=== PATIENT | male | born 1985 | race Caucasian/White ===

== ENCOUNTER → 2016-09-29 | Outpatient (CLI) | payer MEDICARE, MEDICAID ==
[~2016-09-29] MED LIST: AMLOPIDINE PO; CARVEDILOL PO; CELLCEPT 5500 MG/TAB PO; COREG 25MG25 MG/TAB PO; COREG CR40 MG PO; FISH OIL1 IU PO; GABAPENTIN100 M1 PO; KAYEXALATE15 GM/60 M PO; LASIX 40MG TABL40 MG PO; LISINOPRIL20 MG PO; NORCO 325 MG-51 TAB PO; NORVASC 10MG10 MG PO; NORVASC 5MG5 MG/TAB PO; PHOSLO667 M1 PO; PRAVACHOL 20MG20 MG PO; PREDNISONE 5MG5 MG PO; PROGRAF 1MG1 MG PO; RENVELA800 MG PO; TENORMIN 5050 MG/TAB PO; TYLENOL 500MG500 MG PO; VALCYTE450 MG PO; VALTREX 50500 MG/TAB PO; ZOVIRAX400 MG PO; phoslo PO; sensipar PO
[2016-09-29 10:02] LABS: CALCIUM 9.7 mg/dL (8.4-10.2); POTASSIUM 4.9 mmol/L (3.4-5.0)
[2016-09-29 10:11] LABS: CREATININE, serum 11.86 mg/dL (0.66-1.25)
== END ==
LOC: COL.LAB 07:43
PROVIDERS: Internal Medicine
DX: E87.5 Hyperkalemia (principal)

== ENCOUNTER 2016-10-01 11:13 | Day surgery (SDC) | payer MEDICARE, MEDICAID ==
[~2016-10-01] VITALS: Ht 162.6 cm; Wt 52.6 kg
[~2016-10-01 11:13] MED LIST changes: -COREG 25MG25 MG/TAB PO; -KAYEXALATE15 GM/60 M PO; -LASIX 40MG TABL40 MG PO; -RENVELA800 MG PO; -TYLENOL 500MG500 MG PO
[2016-10-01 11:26] VITALS: BP 127/84; PULSE 57; TEMP 98.2
[2016-10-01] MEDS ORDERED: RENVELA800 MG PO (11:26)
[2016-10-01 13:00] VITALS: BP 153/93; PULSE 58; TEMP 98.7
== END 2016-10-01 12:10 | disposition home or self-care (01) ==
LOC: EUO 11:13
DX: T82.41XA Breakdown (mechanical) of vascular dialysis catheter, initial encounter (principal); N18.6 End stage renal disease
CPT/HCPCS: C1751; C1769; J1644

== ENCOUNTER 2016-10-09 12:59 | Outpatient (CLI) | payer MEDICARE, MEDICAID ==
[~2016-10-09] VITALS: Ht 162.7 cm; Wt 49.5 kg
[2016-10-09] VITALS (7 sets, daily range): BP systolic 147–187; BP diastolic 85–109; PULSE 67–90; TEMP 97.9
[~2016-10-09 12:59] MED LIST changes: +RENVELA800 MG PO
== END 2016-10-09 20:09 | disposition home or self-care (01) ==
LOC: EUO 12:59
DX: N18.6 End stage renal disease (principal); Z99.2 Dependence on renal dialysis
CPT/HCPCS: C1751; C1769; J1644; J3010; J7030; J7120; Q9967

== ENCOUNTER 2016-12-11 18:39 | Emergency (ER) | payer MEDICARE, MEDICAID ==
[~2016-12-11] VITALS: Ht 162.6 cm; Wt 49.0 kg
[2016-12-11 19:42] VITALS: TEMP 98.3
[2016-12-11] MEDS ORDERED: LASIX 40MG TABL40 MG PO (19:44)
[2016-12-11] MEDS ORDERED: COREG 25MG25 MG/TAB PO (19:57)
[2016-12-11] MEDS ORDERED: NORVASC 5MG5 MG/TAB PO (19:57)
[2016-12-11 20:27] VITALS: BP 181/132; PULSE 61
== END 2016-12-11 20:30 | disposition home or self-care (01) ==
LOC: COL.ER 18:39
DX: R60.9 Edema, unspecified (principal); I12.0 Hypertensive chronic kidney disease with stage 5 chronic kidney disease or end stage renal disease; N18.6 End stage renal disease; K21.9 Gastro-esophageal reflux disease without esophagitis; Z99.2 Dependence on renal dialysis; Z87.891 Personal history of nicotine dependence; Z94.0 Kidney transplant status; Z98.890 Other specified postprocedural states

== ENCOUNTER 2016-12-29 22:36 | Emergency (ER) | payer MEDICARE, MEDICAID ==
[~2016-12-29] VITALS: Ht 162.6 cm; Wt 50.0 kg
[~2016-12-29 22:36] MED LIST changes: +COREG 25MG25 MG/TAB PO; +LASIX 40MG TABL40 MG PO
[2016-12-29 22:38] VITALS: TEMP 98.6
[2016-12-30 00:55] VITALS: BP 124/78; PULSE 90
== END 2016-12-30 00:35 | disposition home or self-care (01) ==
LOC: COL.ER 22:36
DX: T82.898A Other specified complication of vascular prosthetic devices, implants and grafts, initial encounter (principal); N18.6 End stage renal disease; Z99.2 Dependence on renal dialysis

== ENCOUNTER 2017-01-01 11:38 | Inpatient (IN) | payer MEDICARE, MEDICAID ==
[2017-01-01] VITALS (318 sets, daily range): BP systolic 135–152; BP diastolic 92–99; PULSE 51–60; TEMP 97.5–98.3; O2SAT 61–100
[~2017-01-01] VITALS: Ht 162.6 cm; Wt 51.1 kg
[2017-01-01] MEDS ORDERED: TYLENOL 500MG500 MG PO (11:58)
[2017-01-01 12:55] LABS: BASO % 0.6 % (0.0-2.0); EOS # 0.2 (0.0-0.7); EOS % 3.3 % (0-4.0); GRAN % 57.6 % (42.2-75.2); LYMPH # 1.3 (1.2-3.4); LYMPH % 25.1 % (20.0-51.0); MEAN CELL VOLUME 105 fl (80.0-100.0); MEAN CORPUSCULAR HGB CONC 33 g/dl (33.0-37.0); MEAN PLATELET VOLUME 10.3 fl (7.4-10.4); MONO # 0.7 (0.1-0.6); MONO % 13.2 % (1.7-9.3); PLATELET COUNT 153 K/mm3 (130-400); RED BLOOD COUNT 3.27 M/mm3 (4.20-5.60); REDCELL DISTRIBUTION WIDTH-CV 16.2 % (11.5-14.5); WHITE BLOOD COUNT 5.1 K/mm3 (4.8-10.8)
[2017-01-01 13:01] LABS: HEMATOCRIT 34.3 % (42.0-52.0); HEMOGLOBIN 11.4 g/dl (13.5-18.0); MEAN CORPUSCULAR HEMOGLOBIN 35 pg (27.0-31.0)
[2017-01-01 13:09] LABS: ADJUSTED CALCIUM 8.5 mg/dL (8.4-10.2); ALBUMIN 4.1 gm/dL (3.5-5.0); BILIRUBIN,TOTAL 0.6 mg/dL (0.0-1.0); C-REACTIVE PROTEIN 0.6 mg/dL (0.0-0.9); CALCIUM 8.6 mg/dL (8.4-10.2); TOTAL PROTEIN 6.9 gm/dL (6.4-8.2)
[2017-01-01 13:31] LABS: CREATININE, serum 15.32 mg/dL (0.66-1.25)
[2017-01-01 13:32] LABS: ERYTHROCYTE SEDIMENTATION RATE 6 mm/hr (0-15); POTASSIUM 8.3 mmol/L (3.4-5.0)
[2017-01-02 00:10] VITALS: BP 135/81; PULSE 59; TEMP 97.9
[2017-01-02 03:50] VITALS: BP 120/76; PULSE 57; TEMP 98.2
[2017-01-02 07:26] LABS: MEAN CELL VOLUME 104 fl (80.0-100.0); MEAN CORPUSCULAR HGB CONC 33 g/dl (33.0-37.0); MEAN PLATELET VOLUME 10.4 fl (7.4-10.4); PLATELET COUNT 158 K/mm3 (130-400); RED BLOOD COUNT 3.33 M/mm3 (4.20-5.60); REDCELL DISTRIBUTION WIDTH-CV 16.1 % (11.5-14.5); WHITE BLOOD COUNT 5.8 K/mm3 (4.8-10.8)
[2017-01-02 07:28] LABS: HEMATOCRIT 34.7 % (42.0-52.0); HEMOGLOBIN 11.4 g/dl (13.5-18.0); MEAN CORPUSCULAR HEMOGLOBIN 34 pg (27.0-31.0)
[2017-01-02 07:37] VITALS: BP 153/89; PULSE 58; TEMP 98.9
[2017-01-02 07:48] LABS: CALCIUM 9.3 mg/dL (8.4-10.2); PHOSPHOROUS 6.6 mg/dL (2.5-4.5)
[2017-01-02 08:05] LABS: CREATININE, serum 9.51 mg/dL (0.66-1.25); POTASSIUM 6.4 mmol/L (3.4-5.0)
[2017-01-02 11:24] VITALS: BP 146/107; PULSE 64; TEMP 99.1
[2017-01-02] MEDS ORDERED: KAYEXALATE15 GM/60 M PO (12:05)
[2017-01-02 16:24] VITALS: BP 159/113; PULSE 70
== END 2017-01-02 16:59 | disposition home or self-care (01) | DRG 640 ==
LOC: COL.ER 11:38 → ICU 14:29 → MEDICAL 16:56 → ICU 16:56 → MEDICAL 20:21
PROVIDERS: Emergency Medicine; Internal Medicine Nephrology
PROC: 5A1D60Z (ICD-10-PCS; principal; 2017-01-01)
DX: E87.5 Hyperkalemia (principal); N18.6 End stage renal disease; I12.0 Hypertensive chronic kidney disease with stage 5 chronic kidney disease or end stage renal disease; D63.1 Anemia in chronic kidney disease; E16.0 Drug-induced hypoglycemia without coma; T38.3X5A Adverse effect of insulin and oral hypoglycemic [antidiabetic] drugs, initial encounter; Z99.2 Dependence on renal dialysis; Z87.891 Personal history of nicotine dependence
CPT/HCPCS: J1815

== ENCOUNTER 2017-05-27 11:27 | Outpatient (RCR) | payer MEDICARE, MEDICAID ==
[~2017-05-27 11:27] MED LIST changes: +KAYEXALATE15 GM/60 M PO; +TYLENOL 500MG500 MG PO
[2017-05-27 12:43] VITALS: BP 232/141; PULSE 97
[2017-05-27 13:02] VITALS: BP 222/146; PULSE 98
== END 2017-05-27 13:10 | disposition home or self-care (01) ==
LOC: EUO 11:27
DX: D64.9 Anemia, unspecified (principal); F17.290 Nicotine dependence, other tobacco product, uncomplicated; Z99.2 Dependence on renal dialysis; Z90.5 Acquired absence of kidney

== ENCOUNTER 2017-05-28 19:26 | Emergency (ER) | payer MEDICARE, MEDICAID ==
[~2017-05-28] VITALS: Ht 162.6 cm; Wt 50.0 kg
[2017-05-28 19:27] VITALS: TEMP 100.3
[2017-05-28 20:04] LABS: BASO % 0.5 % (0.0-2.0); EOS # 0.2 (0.0-0.7); EOS % 2.5 % (0-4.0); GRAN # 6.4 (1.4-6.5); GRAN % 72.6 % (42.2-75.2); HEMATOCRIT 22.2 % (42.0-52.0); HEMOGLOBIN 7.2 g/dl (13.5-18.0); LYMPH # 1.5 (1.2-3.4); LYMPH % 17.4 % (20.0-51.0); MEAN CELL VOLUME 99 fl (80.0-100.0); MEAN CORPUSCULAR HEMOGLOBIN 32 pg (27.0-31.0); MEAN CORPUSCULAR HGB CONC 32 g/dl (33.0-37.0); MEAN PLATELET VOLUME 9.9 fl (7.4-10.4); MONO # 0.6 (0.1-0.6); MONO % 6.7 % (1.7-9.3); PLATELET COUNT 270 K/mm3 (130-400); RED BLOOD COUNT 2.25 M/mm3 (4.20-5.60); WHITE BLOOD COUNT 8.9 K/mm3 (4.8-10.8)
[2017-05-28 20:09] LABS: ADJUSTED CALCIUM 9.3 mg/dL (8.4-10.2); ALBUMIN 4.2 gm/dL (3.5-5.0); BILIRUBIN,TOTAL 0.9 mg/dL (0.0-1.0); CALCIUM 9.5 mg/dL (8.4-10.2); POTASSIUM 3.7 mmol/L (3.4-5.0)
[2017-05-28 20:18] LABS: CREATININE, serum 6.32 mg/dL (0.66-1.25)
[2017-05-28 21:49] LABS: CALCIUM 9.4 mg/dL (8.4-10.2); POTASSIUM 4.1 mmol/L (3.4-5.0)
[2017-05-28 21:53] LABS: CREATININE, serum 7.55 mg/dL (0.66-1.25)
[2017-05-28 22:32] VITALS: BP 230/110; PULSE 109
== END 2017-05-28 22:30 | disposition short-term general hospital (02) ==
LOC: COL.ER 19:26
PROVIDERS: Family Medicine
DX: N18.5 Chronic kidney disease, stage 5 (principal); E87.70 Fluid overload, unspecified; J18.9 Pneumonia, unspecified organism; R79.89 Other specified abnormal findings of blood chemistry
CPT/HCPCS: J0696; J2060; J7050

== ENCOUNTER 2017-07-31 12:31 | Outpatient (RCR) | payer MEDICARE, MEDICAID ==
[2017-07-31] VITALS (9 sets, daily range): BP systolic 108–216; BP diastolic 88–146; PULSE 88–110; TEMP 97.8–98.3
[~2017-07-31] VITALS: Ht 162.6 cm; Wt 52.3 kg
[2017-07-31 17:08] LABS: CALCIUM 8.7 mg/dL (8.4-10.2); POTASSIUM 4.4 mmol/L (3.4-5.0)
[2017-07-31 17:09] LABS: CREATININE, serum 8.61 mg/dL (0.66-1.25)
== END 2017-07-31 17:30 | disposition home or self-care (01) ==
LOC: EUO 12:31
PROVIDERS: Internal Medicine Nephrology
DX: E87.70 Fluid overload, unspecified (principal); R06.02 Shortness of breath; Z99.2 Dependence on renal dialysis
CPT/HCPCS: P9016

== ENCOUNTER 2017-07-31 18:00 | Inpatient (IN) | payer MEDICARE, MEDICAID ==
[~2017-07-31] VITALS: Ht 162.6 cm; Wt 49.8 kg
[2017-07-31 21:53] VITALS: BP 164/121; PULSE 93; TEMP 98.6
[2017-08-01 00:51] VITALS: BP 217/148; PULSE 94; TEMP 97.6
[2017-08-01 03:58] VITALS: BP 203/143; PULSE 94; TEMP 99
== END 2017-08-01 08:53 | disposition left against medical advice (07) | DRG 304 ==
LOC: MEDICAL 18:00
PROC: 5A1D70Z Performance of Urinary Filtration, Intermittent, Less than 6 Hours Per Day (ICD-10-PCS; principal; 2017-07-31)
DX: I16.1 Hypertensive emergency (principal); N18.6 End stage renal disease; I12.0 Hypertensive chronic kidney disease with stage 5 chronic kidney disease or end stage renal disease; D63.1 Anemia in chronic kidney disease; E87.70 Fluid overload, unspecified; Z99.2 Dependence on renal dialysis; Z91.14 Patient's other noncompliance with medication regimen; Z88.0 Allergy status to penicillin
CPT/HCPCS: J0881

== ENCOUNTER 2017-08-03 02:54 | Inpatient (IN) | payer MEDICARE, MEDICAID ==
[~2017-08-03] VITALS: Ht 162.6 cm; Wt 52.9 kg
[2017-08-03 03:36] LABS: BASO # 0.1 (0.0-0.2); BASO % 0.6 % (0.0-2.0); EOS # 0.3 (0.0-0.7); EOS % 4.4 % (0-4.0); GRAN # 5.6 (1.4-6.5); LYMPH # 1.4 (1.2-3.4); LYMPH % 17.4 % (20.0-51.0); MEAN CELL VOLUME 98 fl (80.0-100.0); MEAN CORPUSCULAR HGB CONC 33 g/dl (33.0-37.0); MEAN PLATELET VOLUME 10.4 fl (7.4-10.4); MONO # 0.4 (0.1-0.6); MONO % 5.3 % (1.7-9.3); PLATELET COUNT 157 K/mm3 (130-400); RED BLOOD COUNT 3.28 M/mm3 (4.20-5.60)
[2017-08-03 03:37] LABS: HEMOGLOBIN 10.4 g/dl (13.5-18.0); MEAN CORPUSCULAR HEMOGLOBIN 32 pg (27.0-31.0)
[2017-08-03 03:49] LABS: ALBUMIN 3.8 gm/dL (3.5-5.0); BILIRUBIN,TOTAL 0.6 mg/dL (0.0-1.0); CALCIUM 8.8 mg/dL (8.4-10.2); POTASSIUM 4.4 mmol/L (3.4-5.0); TOTAL PROTEIN 6.7 gm/dL (6.4-8.2)
[2017-08-03 03:53] LABS: CREATININE, serum 7.83 mg/dL (0.66-1.25)
[2017-08-03 04:05] LABS: TROPONIN-I 0.155 ng/mL (0.000-0.034)
[2017-08-03 05:41] VITALS: BP 211/196; PULSE 81
[2017-08-03 05:46] VITALS: BP 179/122; PULSE 73; TEMP 98.7
[2017-08-03 12:00] VITALS: BP 179/108; PULSE 84; TEMP 98.6
[2017-08-03 12:56] LABS: TROPONIN-I 0.196 ng/mL (0.000-0.034)
[2017-08-03 15:10] VITALS: BP 171/103; PULSE 81; TEMP 98.6
[2017-08-03 19:56] VITALS: BP 167/109; PULSE 72; TEMP 98.2
[2017-08-03 23:19] VITALS: BP 149/95; PULSE 76; TEMP 98.8
[2017-08-04 03:24] VITALS: BP 170/111; PULSE 83; TEMP 98.6
[2017-08-04 08:09] VITALS: BP 159/100; PULSE 75; TEMP 98.7
[2017-08-04 08:14] LABS: BASO # 0.1 (0.0-0.2); BASO % 0.6 % (0.0-2.0); EOS # 0.3 (0.0-0.7); EOS % 3.8 % (0-4.0); GRAN # 5.7 (1.4-6.5); LYMPH # 1.3 (1.2-3.4); LYMPH % 15.9 % (20.0-51.0); MEAN CELL VOLUME 99 fl (80.0-100.0); MEAN CORPUSCULAR HGB CONC 32 g/dl (33.0-37.0); MEAN PLATELET VOLUME 9.7 fl (7.4-10.4); MONO # 0.6 (0.1-0.6); MONO % 7.1 % (1.7-9.3); PLATELET COUNT 218 K/mm3 (130-400); RED BLOOD COUNT 3.51 M/mm3 (4.20-5.60); REDCELL DISTRIBUTION WIDTH-CV 19.4 % (11.5-14.5)
[2017-08-04 08:17] LABS: HEMATOCRIT 34.8 % (42.0-52.0); HEMOGLOBIN 11.1 g/dl (13.5-18.0); MEAN CORPUSCULAR HEMOGLOBIN 32 pg (27.0-31.0)
[2017-08-04 08:29] LABS: ALBUMIN 3.7 gm/dL (3.5-5.0); BILIRUBIN,TOTAL 0.4 mg/dL (0.0-1.0); POTASSIUM 4.5 mmol/L (3.4-5.0); TOTAL PROTEIN 6.6 gm/dL (6.4-8.2)
[2017-08-04 08:37] LABS: CREATININE, serum 6.92 mg/dL (0.66-1.25)
[2017-08-04 11:32] VITALS: BP 148/81; PULSE 70; TEMP 98.6
[2017-08-04 16:11] VITALS: BP 170/116; PULSE 73; TEMP 97.9
[2017-08-04 20:02] VITALS: BP 150/93; PULSE 67; TEMP 97.4
[2017-08-05 00:14] VITALS: BP 167/106; PULSE 75; TEMP 98.2
[2017-08-05 04:15] VITALS: BP 153/104; PULSE 89; TEMP 97.8
[2017-08-05 06:44] LABS: BASO % 0.5 % (0.0-2.0); EOS # 0.4 (0.0-0.7); EOS % 5.4 % (0-4.0); GRAN # 5.4 (1.4-6.5); GRAN % 68.3 % (42.2-75.2); LYMPH # 1.4 (1.2-3.4); LYMPH % 17.7 % (20.0-51.0); MEAN CELL VOLUME 99 fl (80.0-100.0); MEAN CORPUSCULAR HGB CONC 32 g/dl (33.0-37.0); MEAN PLATELET VOLUME 9.6 fl (7.4-10.4); MONO # 0.6 (0.1-0.6); MONO % 7.6 % (1.7-9.3); PLATELET COUNT 209 K/mm3 (130-400); RED BLOOD COUNT 3.35 M/mm3 (4.20-5.60); REDCELL DISTRIBUTION WIDTH-CV 18.9 % (11.5-14.5)
[2017-08-05 06:45] LABS: HEMATOCRIT 33.2 % (42.0-52.0); HEMOGLOBIN 10.7 g/dl (13.5-18.0); MEAN CORPUSCULAR HEMOGLOBIN 32 pg (27.0-31.0)
[2017-08-05 06:48] LABS: ALBUMIN 3.7 gm/dL (3.5-5.0); BILIRUBIN,TOTAL 0.5 mg/dL (0.0-1.0); POTASSIUM 4.4 mmol/L (3.4-5.0); TOTAL PROTEIN 6.6 gm/dL (6.4-8.2)
[2017-08-05 07:15] LABS: CREATININE, serum 9.41 mg/dL (0.66-1.25)
[2017-08-05 07:42] VITALS: BP 167/95; PULSE 72; TEMP 98.2
[2017-08-05 20:07] VITALS: BP 175/117; PULSE 69; TEMP 97.5
[2017-08-06 07:55] LABS: CALCIUM 8.7 mg/dL (8.4-10.2); POTASSIUM 5.3 mmol/L (3.4-5.0)
[2017-08-06 07:57] LABS: CREATININE, serum 11.98 mg/dL (0.66-1.25)
[2017-08-06] MEDS ORDERED: PRINIVIL40 MG PO ×2 (08:32→10:41)
[2017-08-06] MEDS ORDERED: COREG 25MG25 MG/TAB PO (10:41)
[2017-08-06] MEDS ORDERED: NORVASC 5MG5 MG/TAB PO (10:41)
[2017-08-06 11:45] VITALS: BP 176/11; PULSE 64; TEMP 97.9
== END 2017-08-06 13:15 | disposition home or self-care (01) | DRG 304 ==
LOC: COL.ER 02:54 → MEDICAL 04:45
PROVIDERS: Emergency Medicine; Internal Medicine; Internal Medicine Nephrology
PROC: 5A1D70Z Performance of Urinary Filtration, Intermittent, Less than 6 Hours Per Day (ICD-10-PCS; principal; 2017-08-03)
PROC: 5A1D70Z Performance of Urinary Filtration, Intermittent, Less than 6 Hours Per Day (ICD-10-PCS; 2017-08-06)
DX: I16.0 Hypertensive urgency (principal); N18.6 End stage renal disease; I12.0 Hypertensive chronic kidney disease with stage 5 chronic kidney disease or end stage renal disease; D63.1 Anemia in chronic kidney disease; E87.70 Fluid overload, unspecified; Z99.2 Dependence on renal dialysis; Z91.15 Patient's noncompliance with renal dialysis; Z88.0 Allergy status to penicillin; Z91.14 Patient's other noncompliance with medication regimen
CPT/HCPCS: J0360; J1170; J2270; J2405

== ENCOUNTER 2017-10-02 11:11 | Inpatient (IN) | payer MEDICARE, MEDICAID ==
[~2017-10-02] VITALS: Ht 162.6 cm; Wt 53.5 kg
[~2017-10-02 11:11] MED LIST changes: +*Vancomycin Dosing P IV; +PRINIVIL40 MG PO
[2017-10-02 12:16] LABS: BASO # 0.1 (0.0-0.2); BASO % 0.9 % (0.0-2.0); EOS # 0.5 (0.0-0.7); EOS % 7.2 % (0-4.0); GRAN # 3.9 (1.4-6.5); GRAN % 59.4 % (42.2-75.2); LYMPH # 1.4 (1.2-3.4); LYMPH % 21.7 % (20.0-51.0); MEAN CELL VOLUME 97 fl (80.0-100.0); MEAN CORPUSCULAR HGB CONC 32 g/dl (33.0-37.0); MEAN PLATELET VOLUME 9.9 fl (7.4-10.4); MONO # 0.7 (0.1-0.6); MONO % 10.3 % (1.7-9.3); PLATELET COUNT 178 K/mm3 (130-400); RED BLOOD COUNT 2.79 M/mm3 (4.20-5.60); REDCELL DISTRIBUTION WIDTH-CV 16.9 % (11.5-14.5)
[2017-10-02 12:17] LABS: HEMOGLOBIN 8.7 g/dl (13.5-18.0); MEAN CORPUSCULAR HEMOGLOBIN 31 pg (27.0-31.0)
[2017-10-02 12:22] LABS: BILIRUBIN,TOTAL 0.6 mg/dL (0.0-1.0); CALCIUM 8.3 mg/dL (8.4-10.2); MAGNESIUM 1.8 mg/dL (1.6-2.3); PHOSPHOROUS 5.6 mg/dL (2.5-4.5); TOTAL PROTEIN 7.2 gm/dL (6.4-8.2)
[2017-10-02 12:25] LABS: CREATININE, serum 11.41 mg/dL (0.66-1.25)
[2017-10-02 12:26] LABS: POTASSIUM 7.9 mmol/L (3.4-5.0)
[2017-10-02 16:45] VITALS: BP 185/114; PULSE 73; TEMP 98.1
[2017-10-02 19:28] VITALS: BP 180/107; PULSE 74
[2017-10-02 23:14] VITALS: BP 156/94; PULSE 75; TEMP 98.2
[2017-10-03 03:45] VITALS: BP 140/88; PULSE 65; TEMP 98.2
[2017-10-03 06:42] LABS: BASO # 0.1 (0.0-0.2); BASO % 0.8 % (0.0-2.0); EOS # 0.5 (0.0-0.7); EOS % 7.6 % (0-4.0); GRAN # 4.1 (1.4-6.5); GRAN % 66.7 % (42.2-75.2); LYMPH # 0.9 (1.2-3.4); LYMPH % 15.1 % (20.0-51.0); MEAN CELL VOLUME 96 fl (80.0-100.0); MEAN CORPUSCULAR HGB CONC 32 g/dl (33.0-37.0); MEAN PLATELET VOLUME 9.7 fl (7.4-10.4); MONO # 0.6 (0.1-0.6); MONO % 9.2 % (1.7-9.3); PLATELET COUNT 151 K/mm3 (130-400); RED BLOOD COUNT 2.55 M/mm3 (4.20-5.60)
[2017-10-03 06:45] LABS: HEMOGLOBIN 7.8 g/dl (13.5-18.0); MEAN CORPUSCULAR HEMOGLOBIN 31 pg (27.0-31.0)
[2017-10-03 06:46] LABS: HEMATOCRIT 24.5 % (42.0-52.0)
[2017-10-03 06:54] LABS: CALCIUM 7.7 mg/dL (8.4-10.2)
[2017-10-03 07:04] LABS: CREATININE, serum 8.55 mg/dL (0.66-1.25); POTASSIUM 6.4 mmol/L (3.4-5.0)
[2017-10-03 12:14] VITALS: BP 177/116; PULSE 74; TEMP 97.8
[2017-10-03 15:20] VITALS: BP 186/115; PULSE 104; TEMP 98.7
[2017-10-03 20:31] VITALS: BP 169/113; PULSE 69; TEMP 98.6
[2017-10-03 23:55] VITALS: BP 149/93; PULSE 63; TEMP 98.4
[2017-10-04 04:44] VITALS: BP 159/90; PULSE 57; TEMP 98.2
[2017-10-04 06:50] LABS: BASO # 0.1 (0.0-0.2); BASO % 0.7 % (0.0-2.0); EOS # 0.6 (0.0-0.7); EOS % 8.5 % (0-4.0); GRAN # 4.5 (1.4-6.5); GRAN % 64.6 % (42.2-75.2); LYMPH # 1.1 (1.2-3.4); LYMPH % 16.2 % (20.0-51.0); MEAN CELL VOLUME 98 fl (80.0-100.0); MEAN CORPUSCULAR HGB CONC 32 g/dl (33.0-37.0); MEAN PLATELET VOLUME 9.6 fl (7.4-10.4); MONO # 0.7 (0.1-0.6); MONO % 9.3 % (1.7-9.3); PLATELET COUNT 160 K/mm3 (130-400); RED BLOOD COUNT 2.64 M/mm3 (4.20-5.60); REDCELL DISTRIBUTION WIDTH-CV 17.2 % (11.5-14.5)
[2017-10-04 07:00] LABS: CALCIUM 8.6 mg/dL (8.4-10.2)
[2017-10-04 07:06] LABS: HEMATOCRIT 25.8 % (42.0-52.0); HEMOGLOBIN 8.2 g/dl (13.5-18.0); MEAN CORPUSCULAR HEMOGLOBIN 31 pg (27.0-31.0)
[2017-10-04 07:09] LABS: CREATININE, serum 7.09 mg/dL (0.66-1.25); POTASSIUM 6.3 mmol/L (3.4-5.0)
[2017-10-04 08:00] VITALS: BP 188/118; PULSE 62; TEMP 97.9
[2017-10-04 12:16] VITALS: BP 164/100; PULSE 71; TEMP 98.2
== END 2017-10-04 19:07 | disposition home or self-care (01) | DRG 640 ==
LOC: COL.ER 11:11 → EUO 13:34 → MEDICAL 13:40
PROVIDERS: Emergency Medicine; Internal Medicine
PROC: 5A1D70Z Performance of Urinary Filtration, Intermittent, Less than 6 Hours Per Day (ICD-10-PCS; principal; 2017-10-02)
PROC: 5A1D70Z Performance of Urinary Filtration, Intermittent, Less than 6 Hours Per Day (ICD-10-PCS; 2017-10-03)
PROC: 5A1D70Z Performance of Urinary Filtration, Intermittent, Less than 6 Hours Per Day (ICD-10-PCS; 2017-10-04)
DX: E87.5 Hyperkalemia (principal); N18.6 End stage renal disease; T86.12 Kidney transplant failure; I12.0 Hypertensive chronic kidney disease with stage 5 chronic kidney disease or end stage renal disease; Z99.2 Dependence on renal dialysis; D63.1 Anemia in chronic kidney disease; F17.210 Nicotine dependence, cigarettes, uncomplicated; I16.0 Hypertensive urgency; Z91.15 Patient's noncompliance with renal dialysis
CPT/HCPCS: J1815; J3370

== ENCOUNTER 2017-10-08 19:43 | Emergency (ER) | payer MEDICARE, MEDICAID ==
[~2017-10-08] VITALS: Ht 162.6 cm; Wt 52.0 kg
[2017-10-08 19:47] VITALS: TEMP 98.6
[2017-10-08 20:54] LABS: BASO % 0.3 % (0.0-2.0); EOS # 0.4 (0.0-0.7); EOS % 3.8 % (0-4.0); GRAN # 8.8 (1.4-6.5); GRAN % 76.4 % (42.2-75.2); LYMPH # 1.2 (1.2-3.4); LYMPH % 10.4 % (20.0-51.0); MEAN CELL VOLUME 98 fl (80.0-100.0); MEAN CORPUSCULAR HGB CONC 33 g/dl (33.0-37.0); MEAN PLATELET VOLUME 8.8 fl (7.4-10.4); MONO % 8.7 % (1.7-9.3); PLATELET COUNT 99 K/mm3 (130-400); RED BLOOD COUNT 2.54 M/mm3 (4.20-5.60); REDCELL DISTRIBUTION WIDTH-CV 18.7 % (11.5-14.5)
[2017-10-08 20:55] LABS: HEMATOCRIT 24.9 % (42.0-52.0); HEMOGLOBIN 8.1 g/dl (13.5-18.0); MEAN CORPUSCULAR HEMOGLOBIN 32 pg (27.0-31.0)
[2017-10-08 21:07] LABS: ALBUMIN 4.3 gm/dL (3.5-5.0); BILIRUBIN,TOTAL 0.5 mg/dL (0.0-1.0); C-REACTIVE PROTEIN 0.6 mg/dL (0.0-0.9); TOTAL PROTEIN 7.6 gm/dL (6.4-8.2)
[2017-10-08 21:16] LABS: TROPONIN-I 0.022 ng/mL (0.000-0.034)
[2017-10-08 21:17] LABS: CREATININE, serum 9.8 mg/dL (0.66-1.25); POTASSIUM 6.6 mmol/L (3.4-5.0)
[2017-10-09 00:36] LABS: CALCIUM 9.2 mg/dL (8.4-10.2); POTASSIUM 5.1 mmol/L (3.4-5.0)
[2017-10-09 00:40] LABS: CREATININE, serum 10.34 mg/dL (0.66-1.25)
[2017-10-09 01:33] VITALS: BP 186/130; PULSE 81
== END 2017-10-09 01:41 | disposition home or self-care (01) ==
LOC: COL.ER 19:43
PROVIDERS: Emergency Medicine
DX: I12.0 Hypertensive chronic kidney disease with stage 5 chronic kidney disease or end stage renal disease (principal); N18.6 End stage renal disease; E87.5 Hyperkalemia; F17.210 Nicotine dependence, cigarettes, uncomplicated; Z99.2 Dependence on renal dialysis
CPT/HCPCS: J1815

== ENCOUNTER 2017-11-03 11:45 | Emergency (ER) | payer MEDICARE, MEDICAID ==
[~2017-11-03] VITALS: Ht 162.6 cm; Wt 52.0 kg
[2017-11-03 11:54] VITALS: PULSE 80; TEMP 99.7
[2017-11-03 12:45] VITALS: BP 181/121
[2017-11-03] MEDS ORDERED: TUSS PO (13:15)
[2017-11-03] MEDS ORDERED: DOXYCYCLINE 10100 MG PO (13:15)
== END 2017-11-03 13:20 | disposition home or self-care (01) ==
LOC: COL.ER 11:45
DX: J40 Bronchitis, not specified as acute or chronic (principal); I12.0 Hypertensive chronic kidney disease with stage 5 chronic kidney disease or end stage renal disease; N18.6 End stage renal disease; F12.90 Cannabis use, unspecified, uncomplicated; F17.210 Nicotine dependence, cigarettes, uncomplicated; Z99.2 Dependence on renal dialysis; Z94.0 Kidney transplant status; Z98.890 Other specified postprocedural states

== ENCOUNTER 2018-01-31 03:51 | Inpatient (IN) | payer MEDICARE, MEDICAID ==
[~2018-01-31] VITALS: Ht 162.6 cm; Wt 55.5 kg
[~2018-01-31 03:51] MED LIST changes: +COZAAR 50MG50 MG/TAB PO; +DOXYCYCLINE 10100 MG PO; +TUSS PO; +TYLENOL 8 HR PO
[2018-01-31 04:33] LABS: BASO % 0.2 % (0.0-2.0); EOS # 0.5 (0.0-0.7); EOS % 4.9 % (0-4.0); GRAN # 8.6 (1.4-6.5); GRAN % 81.5 % (42.2-75.2); LYMPH # 0.9 (1.2-3.4); LYMPH % 8.1 % (20.0-51.0); MEAN CELL VOLUME 99 fl (80.0-100.0); MEAN CORPUSCULAR HGB CONC 33 g/dl (33.0-37.0); MEAN PLATELET VOLUME 9.6 fl (7.4-10.4); MONO # 0.5 (0.1-0.6); PLATELET COUNT 181 K/mm3 (130-400); RED BLOOD COUNT 1.92 M/mm3 (4.20-5.60)
[2018-01-31 04:36] LABS: MEAN CORPUSCULAR HEMOGLOBIN 32 pg (27.0-31.0)
[2018-01-31 04:37] LABS: HEMOGLOBIN 6.2 g/dl (13.5-18.0); INR 1.1 (0.8-3.0)
[2018-01-31 04:47] LABS: ALBUMIN 4.1 gm/dL (3.5-5.0); BILIRUBIN,TOTAL 0.5 mg/dL (0.0-1.0); CALCIUM 6.9 mg/dL (8.4-10.2); MAGNESIUM 2.1 mg/dL (1.6-2.3); PHOSPHOROUS 4.9 mg/dL (2.5-4.5)
[2018-01-31 04:53] LABS: CREATININE, serum 14.46 mg/dL (0.66-1.25)
[2018-01-31 04:54] LABS: POTASSIUM 5.8 mmol/L (3.4-5.0)
[2018-01-31 04:58] LABS: TROPONIN-I 0.026 ng/mL (0.000-0.034)
[2018-01-31 05:45] VITALS: BP 173/101; PULSE 64; TEMP 98.5
[2018-01-31 10:05] VITALS: BP 181/117; PULSE 66; TEMP 99
[2018-01-31 10:59] VITALS: BP 190/118; PULSE 75; TEMP 98.3
[2018-01-31 16:27] VITALS: BP 174/101; PULSE 76; TEMP 99.4
[2018-01-31 19:35] VITALS: BP 179/89; PULSE 67; TEMP 99
[2018-02-01] VITALS (10 sets, daily range): BP systolic 176–215; BP diastolic 97–141; PULSE 60–73; TEMP 98.3–99
[2018-02-01 08:25] LABS: MEAN CELL VOLUME 96 fl (80.0-100.0); MEAN CORPUSCULAR HGB CONC 33 g/dl (33.0-37.0); MEAN PLATELET VOLUME 9.5 fl (7.4-10.4); PLATELET COUNT 176 K/mm3 (130-400); RED BLOOD COUNT 2.54 M/mm3 (4.20-5.60); REDCELL DISTRIBUTION WIDTH-CV 15.6 % (11.5-14.5)
[2018-02-01 08:26] LABS: HEMATOCRIT 24.3 % (42.0-52.0); MEAN CORPUSCULAR HEMOGLOBIN 31 pg (27.0-31.0)
[2018-02-01 08:35] LABS: CALCIUM 7.9 mg/dL (8.4-10.2); PHOSPHOROUS 5.5 mg/dL (2.5-4.5); POTASSIUM 4.7 mmol/L (3.4-5.0)
[2018-02-01 08:44] LABS: CREATININE, serum 10.37 mg/dL (0.66-1.25)
== END 2018-02-01 16:16 | disposition home or self-care (01) | DRG 640 ==
LOC: COL.ER 03:51 → MEDICAL 05:07 → COL.ER 05:07 → MEDICAL 05:08
PROVIDERS: Emergency Medicine; Internal Medicine Nephrology
PROC: 5A1D70Z Performance of Urinary Filtration, Intermittent, Less than 6 Hours Per Day (ICD-10-PCS; principal; 2018-01-31)
DX: E87.70 Fluid overload, unspecified (principal); N18.6 End stage renal disease; I12.0 Hypertensive chronic kidney disease with stage 5 chronic kidney disease or end stage renal disease; D63.1 Anemia in chronic kidney disease; Z91.15 Patient's noncompliance with renal dialysis
CPT/HCPCS: J0882; J2916; P9016

== ENCOUNTER 2018-02-10 14:07 | Emergency (ER) | payer MEDICARE, MEDICAID ==
[~2018-02-10] VITALS: Ht 162.6 cm; Wt 52.5 kg
[2018-02-10 14:08] VITALS: BP 204/138; PULSE 65; TEMP 97.2
[2018-02-10 14:30] LABS: BASO % 0.4 % (0.0-2.0); EOS # 0.6 (0.0-0.7); EOS % 6.5 % (0-4.0); GRAN # 6.9 (1.4-6.5); GRAN % 73.1 % (42.2-75.2); LYMPH # 1.1 (1.2-3.4); LYMPH % 11.7 % (20.0-51.0); MEAN CELL VOLUME 96 fl (80.0-100.0); MEAN CORPUSCULAR HGB CONC 34 g/dl (33.0-37.0); MONO # 0.8 (0.1-0.6); PLATELET COUNT 160 K/mm3 (130-400); RED BLOOD COUNT 2.63 M/mm3 (4.20-5.60); REDCELL DISTRIBUTION WIDTH-CV 17.2 % (11.5-14.5)
[2018-02-10 14:31] LABS: HEMATOCRIT 25.2 % (42.0-52.0); HEMOGLOBIN 8.5 g/dl (13.5-18.0); MEAN CORPUSCULAR HEMOGLOBIN 32 pg (27.0-31.0)
[2018-02-10 14:53] LABS: ALBUMIN 3.9 gm/dL (3.5-5.0); BILIRUBIN,TOTAL 0.6 mg/dL (0.0-1.0); CALCIUM 7.7 mg/dL (8.4-10.2); MAGNESIUM 2.3 mg/dL (1.6-2.3); TOTAL PROTEIN 6.8 gm/dL (6.4-8.2)
[2018-02-10 14:56] LABS: CREATININE, serum 10.24 mg/dL (0.66-1.25)
[2018-02-10 15:02] LABS: TROPONIN-I 0.026 ng/mL (0.000-0.034)
== END 2018-02-10 16:07 | disposition home or self-care (01) ==
LOC: COL.ER 14:07
PROVIDERS: Emergency Medicine
DX: I12.0 Hypertensive chronic kidney disease with stage 5 chronic kidney disease or end stage renal disease (principal); N18.6 End stage renal disease; F17.210 Nicotine dependence, cigarettes, uncomplicated; F12.90 Cannabis use, unspecified, uncomplicated; Z99.2 Dependence on renal dialysis

== ENCOUNTER 2018-02-10 20:41 | Inpatient (IN) | payer MEDICARE, MEDICAID ==
[~2018-02-10] VITALS: Ht 162.6 cm; Wt 52.5 kg
[2018-02-11 01:01] VITALS: BP 193/98; PULSE 69; TEMP 98.6
[2018-02-11 03:40] VITALS: BP 189/150; PULSE 73; TEMP 98.5
[2018-02-11 08:46] LABS: BASO % 0.5 % (0.0-2.0); EOS # 0.5 (0.0-0.7); GRAN # 5.4 (1.4-6.5); GRAN % 71.1 % (42.2-75.2); LYMPH % 13.1 % (20.0-51.0); MEAN CELL VOLUME 97 fl (80.0-100.0); MEAN CORPUSCULAR HGB CONC 33 g/dl (33.0-37.0); MEAN PLATELET VOLUME 10.3 fl (7.4-10.4); MONO # 0.7 (0.1-0.6); PLATELET COUNT 154 K/mm3 (130-400); RED BLOOD COUNT 2.78 M/mm3 (4.20-5.60); REDCELL DISTRIBUTION WIDTH-CV 17.2 % (11.5-14.5)
[2018-02-11 08:51] LABS: HEMOGLOBIN 8.8 g/dl (13.5-18.0); MEAN CORPUSCULAR HEMOGLOBIN 32 pg (27.0-31.0)
[2018-02-11 09:05] LABS: POTASSIUM 4.8 mmol/L (3.4-5.0); TOTAL PROTEIN 6.9 gm/dL (6.4-8.2)
[2018-02-11 09:08] LABS: CREATININE, serum 8.86 mg/dL (0.66-1.25)
[2018-02-11 11:22] VITALS: BP 170/106; PULSE 65; TEMP 98.3
[2018-02-11 15:03] VITALS: BP 184/124; PULSE 68; TEMP 98.4
[2018-02-11 16:30] VITALS: BP 164/106; PULSE 48
[2018-02-11 20:35] VITALS: BP 166/113; PULSE 65; TEMP 97.7
[2018-02-12 00:15] VITALS: BP 168/108; PULSE 64
[2018-02-12 07:07] VITALS: BP 191/111; PULSE 65; TEMP 98.2
[2018-02-12 10:52] VITALS: BP 205/119; PULSE 75; TEMP 98.5
== END 2018-02-12 11:52 | disposition home or self-care (01) | DRG 682 ==
LOC: COL.ER 20:41 → MEDICAL 21:00
PROVIDERS: Internal Medicine Nephrology
PROC: 5A1D70Z Performance of Urinary Filtration, Intermittent, Less than 6 Hours Per Day (ICD-10-PCS; principal; 2018-02-10)
DX: I12.0 Hypertensive chronic kidney disease with stage 5 chronic kidney disease or end stage renal disease (principal); N18.6 End stage renal disease; I16.1 Hypertensive emergency; E87.5 Hyperkalemia; Z99.2 Dependence on renal dialysis; Z91.15 Patient's noncompliance with renal dialysis; R09.02 Hypoxemia; F12.10 Cannabis abuse, uncomplicated

== ENCOUNTER 2018-04-03 16:06 | Inpatient (IN) | payer MEDICARE, MEDICAID ==
[~2018-04-03] VITALS: Ht 162.6 cm; Wt 51.0 kg
[2018-04-03] VITALS (8 sets, daily range): BP systolic 150–200; BP diastolic 87–110; PULSE 63–72; TEMP 98.4–98.9
[~2018-04-03 16:06] MED LIST changes: +CLEOCIN HCL300 MG PO; +ELIMITE TOP
[2018-04-04] VITALS (12 sets, daily range): BP systolic 154–211; BP diastolic 83–134; PULSE 67–80; TEMP 98.4–99.1
[2018-04-04 07:45] LABS: BASO # 0.1 (0.0-0.2); BASO % 0.6 % (0.0-2.0); EOS # 0.5 (0.0-0.7); EOS % 6.3 % (0-4.0); GRAN # 5.7 (1.4-6.5); GRAN % 68.1 % (42.2-75.2); LYMPH # 1.6 (1.2-3.4); LYMPH % 18.9 % (20.0-51.0); MEAN CELL VOLUME 92 fl (80.0-100.0); MEAN CORPUSCULAR HGB CONC 34 g/dl (33.0-37.0); MONO # 0.5 (0.1-0.6); MONO % 5.7 % (1.7-9.3); PLATELET COUNT 275 K/mm3 (130-400); RED BLOOD COUNT 2.72 M/mm3 (4.20-5.60); REDCELL DISTRIBUTION WIDTH-CV 16.2 % (11.5-14.5)
[2018-04-04 07:54] LABS: CALCIUM 8.4 mg/dL (8.4-10.2); POTASSIUM 4.3 mmol/L (3.4-5.0)
[2018-04-04 07:57] LABS: HEMOGLOBIN 8.5 g/dl (13.5-18.0); MEAN CORPUSCULAR HEMOGLOBIN 31 pg (27.0-31.0)
[2018-04-04 08:29] LABS: CREATININE, serum 7.16 mg/dL (0.66-1.25)
== END 2018-04-04 17:21 | disposition home or self-care (01) | DRG 640 ==
LOC: EUO 16:06 → EDSTATUS 16:08 → SURG 16:09
PROVIDERS: Internal Medicine
PROC: 5A1D70Z Performance of Urinary Filtration, Intermittent, Less than 6 Hours Per Day (ICD-10-PCS; principal; 2018-04-04)
DX: E87.71 Transfusion associated circulatory overload (principal); N18.6 End stage renal disease; I12.0 Hypertensive chronic kidney disease with stage 5 chronic kidney disease or end stage renal disease; D63.1 Anemia in chronic kidney disease; Z99.2 Dependence on renal dialysis; Z91.19 Patient's noncompliance with other medical treatment and regimen
CPT/HCPCS: G0378; G0379; P9016

== ENCOUNTER 2018-05-29 10:26 | Outpatient (RCR) | payer MEDICARE, MEDICAID ==
[~2018-05-29] VITALS: Ht 162.6 cm; Wt 55.5 kg
[2018-05-29] MEDS ORDERED: NORVASC 10MG10 MG PO (10:50)
[2018-05-29] MEDS ORDERED: COREG 25MG25 MG/TAB PO (10:51)
[2018-05-29] MEDS ORDERED: COZAAR 50MG50 MG/TAB PO (10:52)
[2018-05-29] MEDS ORDERED: RENVELA800 MG PO (10:53)
[2018-05-29 11:34] VITALS: BP 198/130; PULSE 78; TEMP 98.2
[2018-05-29 11:55] VITALS: BP 205/136; PULSE 81; TEMP 97.7
[2018-05-29 12:10] VITALS: BP 199/142; PULSE 86; TEMP 98.3
[2018-05-29 12:40] VITALS: BP 221/155; PULSE 73; TEMP 98.6
[2018-05-29 13:40] VITALS: BP 211/152; PULSE 69; TEMP 97.8
== END 2018-05-29 14:23 | disposition home or self-care (01) ==
LOC: EUO 10:26
DX: N18.9 Chronic kidney disease, unspecified (principal); D63.1 Anemia in chronic kidney disease
CPT/HCPCS: J7050; P9016

== ENCOUNTER → 2018-06-10 | Outpatient (CLI) | payer MEDICARE, MEDICAID | LOC: COL.RAD 18:50 | DX: R04.2 Hemoptysis (principal); Z99.2 Dependence on renal dialysis ==

== ENCOUNTER 2018-06-16 20:39 | Emergency (ER) | payer MEDICARE, MEDICAID ==
[~2018-06-16] VITALS: Ht 162.6 cm; Wt 50.0 kg
[2018-06-16 20:40] VITALS: TEMP 99
[2018-06-16] MEDS ORDERED: DOXYCYCLINE HY100 MG PO (21:02)
[2018-06-16 21:03] LABS: BASO # 0.1 (0.0-0.2); BASO % 0.5 % (0.0-2.0); EOS # 0.4 (0.0-0.7); EOS % 4.3 % (0-4.0); GRAN # 8.3 (1.4-6.5); LYMPH # 0.8 (1.2-3.4); LYMPH % 8.2 % (20.0-51.0); MEAN CELL VOLUME 98 fl (80.0-100.0); MEAN CORPUSCULAR HGB CONC 33 g/dl (33.0-37.0); MEAN PLATELET VOLUME 9.8 fl (7.4-10.4); MONO # 0.3 (0.1-0.6); MONO % 2.8 % (1.7-9.3); PLATELET COUNT 225 K/mm3 (130-400); RED BLOOD COUNT 2.43 M/mm3 (4.20-5.60); REDCELL DISTRIBUTION WIDTH-CV 17.2 % (11.5-14.5)
[2018-06-16 21:08] LABS: HEMATOCRIT 23.7 % (42.0-52.0); HEMOGLOBIN 7.7 g/dl (13.5-18.0); MEAN CORPUSCULAR HEMOGLOBIN 32 pg (27.0-31.0)
[2018-06-16 21:20] LABS: ALBUMIN 4.3 gm/dL (3.5-5.0); BILIRUBIN,TOTAL 0.9 mg/dL (0.0-1.0); C-REACTIVE PROTEIN 3.8 mg/dL (0.0-0.9)
[2018-06-16 21:21] LABS: CREATININE, serum 7.01 mg/dL (0.66-1.25)
[2018-06-16 22:31] VITALS: BP 197/139; PULSE 91
== END 2018-06-16 23:10 | disposition home or self-care (01) ==
LOC: COL.ER 20:39
PROVIDERS: Family Medicine
DX: J90 Pleural effusion, not elsewhere classified (principal); I12.0 Hypertensive chronic kidney disease with stage 5 chronic kidney disease or end stage renal disease; N18.6 End stage renal disease

== ENCOUNTER 2018-06-17 04:35 | Emergency (ER) | payer MEDICARE, MEDICAID ==
[~2018-06-17] VITALS: Ht 162.6 cm; Wt 54.0 kg
[~2018-06-17 04:35] MED LIST changes: +DOXYCYCLINE HY100 MG PO
[2018-06-17 07:13] VITALS: BP 180/135; PULSE 86; TEMP 98.6
== END 2018-06-17 08:42 | disposition home or self-care (01) ==
LOC: COL.ER 04:35
DX: I12.0 Hypertensive chronic kidney disease with stage 5 chronic kidney disease or end stage renal disease (principal); N18.6 End stage renal disease; Z99.2 Dependence on renal dialysis; Z87.891 Personal history of nicotine dependence; Z98.890 Other specified postprocedural states

== ENCOUNTER → 2018-06-19 | Outpatient (CLI) | payer MEDICARE, MEDICAID | LOC: COL.VAS 08:04 | DX: I34.0 Nonrheumatic mitral (valve) insufficiency (principal); I07.1 Rheumatic tricuspid insufficiency; I35.1 Nonrheumatic aortic (valve) insufficiency ==

== ENCOUNTER 2018-06-23 11:02 | Outpatient (RCR) | payer MEDICARE, MEDICAID ==
[2018-06-23] VITALS (9 sets, daily range): BP systolic 175–220; BP diastolic 106–143; PULSE 74–83; TEMP 97.8–98.6
[~2018-06-23] VITALS: Ht 162.6 cm; Wt 55.7 kg
== END 2018-06-23 18:01 | disposition home or self-care (01) ==
LOC: EUO 11:02
DX: D64.9 Anemia, unspecified (principal)
CPT/HCPCS: J7050; P9016

== ENCOUNTER → 2018-07-04 | Outpatient (CLI) | payer MEDICARE, MEDICAID | LOC: COL.RAD 11:04 | DX: I50.1 Left ventricular failure, unspecified (principal); Z95.9 Presence of cardiac and vascular implant and graft, unspecified | CPT/HCPCS: A9539; A9540 ==

== ENCOUNTER → 2018-11-01 | Outpatient (CLI) | payer MEDICARE, MEDICAID | LOC: COL.RAD 15:18 | DX: R07.1 Chest pain on breathing (principal) ==

== ENCOUNTER → 2018-11-07 | Outpatient (CLI) | payer MEDICARE, MEDICAID ==
[~2018-11-07] VITALS: Ht 162.7 cm; Wt 59.2 kg
[2018-11-07 12:08] VITALS: BP 153/90; PULSE 67
[2018-11-07 13:40] VITALS: BP 161/102; PULSE 62
== END ==
LOC: COL.RAD 11:50
DX: N18.6 End stage renal disease (principal)

== ENCOUNTER → 2019-11-03 | Outpatient (CLI) | payer MEDICARE, MEDICAID | LOC: ZCOL.LAB 14:58 | DX: Z11.59 Encounter for screening for other viral diseases (principal); N18.6 End stage renal disease ==

== ENCOUNTER 2021-08-08 16:57 | Emergency (ER) | payer MEDICARE, MEDICAID ==
[~2021-08-08] VITALS: Ht 162.6 cm; Wt 68.0 kg
[2021-08-08 19:16] VITALS: BP 157/106; PULSE 61; TEMP 98.7
== END 2021-08-08 19:23 | disposition home or self-care (01) ==
LOC: COL.ER 16:57
DX: T82.838A Hemorrhage due to vascular prosthetic devices, implants and grafts, initial encounter (principal); I12.0 Hypertensive chronic kidney disease with stage 5 chronic kidney disease or end stage renal disease; N18.6 End stage renal disease; Z99.2 Dependence on renal dialysis; Z79.899 Other long term (current) drug therapy

== ENCOUNTER → 2021-11-14 | Outpatient (CLI) | payer MEDICARE, MEDICAID | LOC: COL.RAD 15:00 | DX: J91.8 Pleural effusion in other conditions classified elsewhere (principal); J98.11 Atelectasis ==